=== PATIENT | female | born 1975 | race Hispanic/Latino ===

== ENCOUNTER 2019-11-26 20:33 | Emergency (ER) | payer BC ==
[~2019-11-26] VITALS: Ht 154.9 cm; Wt 67.1 kg
--- NOTE | 2019-11-27 15:13 | NUR ---
IN PTS REPORT TO GET A PHONE NUMBER TO NOTIFY HER OF RESULTS.
== END 2019-11-26 22:42 | disposition home or self-care (01) ==
LOC: ED 20:33
DX: J06.9 Acute upper respiratory infection, unspecified (principal)
CPT/HCPCS: 71046; 99284-25; U0002